=== PATIENT | female | born 1985 | race Caucasian/White ===

== ENCOUNTER → 2019-06-01 12:32 | Outpatient (CLI) | payer OTHER, SELFPAY ==
--- NOTE | 2019-06-01 | DI.CT.S_ITS ---
PROCEDURE: CT LUMBAR SPINE WO CON INDICATIONS: LOW BACK PAIN TECHNIQUE: Noncontrast 3 mm thick sections acquired from the T12 level to the sacrum. Sagittal and coronal reformats were constructed. For radiation dose reduction, the following was used: automated exposure control. COMPARISON: [facility], CR, XR LUMBAR SPINE 2 OR 3 VIEWS, 05/10/2019, 13:21. FINDINGS: Image quality: Excellent. Bones: There is approximately 15? of convex left lumbar spine scoliosis. There is trace L2-L3, L3-L4 and L4-L5 retrolisthesis. There is mild L5-S1 anterolisthesis. Left L5 pars and articularis defect noted. No acute vertebral body compression fractures. No suspicious lytic or blastic bony lesions. Central spinal caliber is of normal overall caliber. No pars defects. T12-L1: Normal appearance. L1-L2: Normal appearance. L2-L3: Disc height is normal. Mild, diffuse disc bulge. No central stenosis. Mild right neural foraminal narrowing. No definite neural compression. L3-L4: Disc height is normal. Moderate, diffuse disc bulge. Mild to moderate narrowing of the central canal. Mild bilateral neural foraminal narrowing. No definite neural compression. L4-L5: Loss of disc height. Moderate, diffuse disc bulge. Mild bilateral facet hypertrophy. Mild to moderate narrowing of the central canal. Moderate bilateral neural foraminal narrowing. No definite neural compression. L5-S1: Loss of disc height. Mild, diffuse disc bulge there is mild bilateral facet hypertrophy. No central stenosis. Severe bilateral neural foraminal narrowing with mild compression of the exiting right L5 nerve root and marked compression of the exiting left L5 nerve root. Soft tissues: No retroperitoneal masses or hematomas. Visualized aorta is normal in caliber. IMPRESSION: 1. Grade 1 L5-S1 isthmic spondylolisthesis. 2. Multilevel degenerative disease. 3. Multilevel facet arthropathy. 4. Mild to moderate L3-L4 and L4-L5 central canal narrowing. 5. Severe bilateral L5-S1 neural foraminal narrowing. Moderate bilateral L4-L5 neural foraminal narrowing. Mild bilateral L3-L4 neural foraminal narrowing. Mild right L2-L3 neural foraminal narrowing. 6. Mild compression of the exiting right L5 nerve root and marked compression of the exiting left L5 nerve root secondary to neural foraminal narrowing. Please correlate with clinical data. Dictated by: Vy Dunn MD, PhD on 06/01/2019 at 14:26 Approved by: Vy Dunn MD, PhD on 06/01/2019 at 14:33
== END ==
PROVIDERS: PCP Family Medicine; Visit Provider Orthopaedic Surgery Orthopaedic Surgery of the Spine
DX: M54.5 Low back pain (principal); M43.17 Spondylolisthesis, lumbosacral region; M51.36 Other intervertebral disc degeneration, lumbar region; M51.37 Other intervertebral disc degeneration, lumbosacral region; M47.816 Spondylosis without myelopathy or radiculopathy, lumbar region; M47.817 Spondylosis without myelopathy or radiculopathy, lumbosacral region; M48.061 Spinal stenosis, lumbar region without neurogenic claudication; M48.07 Spinal stenosis, lumbosacral region
CPT/HCPCS: 72131

== ENCOUNTER → 2021-07-30 15:30 | Outpatient (CLI) | payer OTHER, SELFPAY ==
--- NOTE | 2021-07-30 | DI.MRI.S_ITS ---
PROCEDURE: MR LUMBAR SPINE WO CON INDICATIONS: Spondylosis lumbar region TECHNIQUE: Noncontrast sagittal T1 spin echo and T2 fast echo, sagittal STIR, axial T1 and T2 fast spin echo through the lumbar spine. In cases with scoliosis, additional coronal T2 fast spin echo may be performed. COMPARISON: [facility], CR, XR LUMBAR SPINE 2 OR 3 VIEWS, 06/10/2021, 8:37. [facility], CT, CT LUMBAR SPINE WO CON, 06/01/2019, 12:36. FINDINGS: Image quality: Excellent. Alignment and Curvature: Mild levoconvex scoliotic curvature is noted. Minimal retrolisthesis is seen at L2-L3, with minimal retrolisthesis also seen L4-L5. Minimal anterolisthesis is seen at L5-S1. A left-sided L5 pars defect can be faintly seen. Bone Marrow: Marrow is of normal overall signal. No acute vertebral body compression fractures. The L2 vertebral body is abnormal, with a somewhat trapezoidal appearance, as seen on the coronal images. This can also be seen on the 2019 CT examination. Spinal Cord: Conus medullaris terminates at the L1 level. Visualized cord demonstrates normal signal and size. Paraspinous Soft Tissues: No paravertebral masses. T12-L1: Normal appearance. L1-L2: Normal appearance. L2-L3: Mild loss of disc height is seen. Loss of disc signal is seen. Mild to moderate disc bulge is seen, which is eccentric to the right. There is mild right-sided and no left-sided neural foraminal narrowing. In fact, the left neural foramen appears enlarged, as on 4 image 16. 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 No central canal narrowing is seen. L3-L4: The disc height is well-preserved. Loss of disc signal is seen at this level. Mild to moderate disc bulge is seen, with a mild central disc protrusion. Moderate facet joint hypertrophy is seen. Moderate bilateral neural foraminal narrowing is seen. No central canal narrowing is seen. L4-L5: Moderate loss of disc height is seen. Loss of disc signal is seen. Reactive marrow endplate changes are seen, which are hyperintense on T1-weighted and T2-weighted imaging and most consistent with fatty metaplasia (Modic type II changes). Moderate disc bulge is seen, with a superimposed central disc protrusion. Mild to moderate facet hypertrophy is seen. There is at least moderate right-sided and moderate to severe left-sided neural foraminal narrowing seen. There is a degree of compression seen the exiting left L4 nerve root. Mild central canal narrowing is seen. L5-S1: Moderate loss of disc height is seen. Loss of disc signal is seen. Mild generalized disc bulge is seen. Moderate facet joint hypertrophy is seen. There is at least moderate right-sided and moderate to severe left-sided neural foraminal narrowing. There is a degree of compression upon the exiting left L5 nerve root. No central canal narrowing is seen. IMPRESSION: Multiple levels of lumbar spine degenerative change are seen, which are most prominent inferiorly. Mild dextroconvex scoliotic curvature is seen. 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 Dictated by: Bijan Stark M.D. on 07/30/2021 at 15:12 Approved by: Bijan Stark M.D. on 07/30/2021 at 15:18
== END ==
PROVIDERS: PCP Family Medicine; Referring Provider Orthopaedic Surgery Orthopaedic Surgery of the Spine; Visit Provider Orthopaedic Surgery Orthopaedic Surgery of the Spine
DX: M47.816 Spondylosis without myelopathy or radiculopathy, lumbar region (principal); M47.817 Spondylosis without myelopathy or radiculopathy, lumbosacral region; M48.061 Spinal stenosis, lumbar region without neurogenic claudication; M48.07 Spinal stenosis, lumbosacral region; M41.9 Scoliosis, unspecified
CPT/HCPCS: 72148